=== PATIENT | male | born 1995 | race Two or more races ===

== ENCOUNTER 2019-09-03 09:00 | Emergency (ER) | payer MEDICAID ==
[~2019-09-03] VITALS: Ht 182.9 cm; Wt 94.8 kg
--- NOTE | 2019-09-03 09:10 | NUR ---
BIB ra c/o witnessed full tonic clonic seizure. Patient a/ox2 at this time, still post-ictal, slow to respond to questions. Breathing even and unlabored, no sob noted, changed into gown, attached to the ekg monitor. Seizure precaution observed.
[2019-09-03 09:24] LABS: BASOPHILS % (AUTO) 0.4 % (0.0-2.0); HEMATOCRIT 43 % (39-51); HEMOGLOBIN 14.7 g/dL (13.5-17.5); LYMPHOCYTES # (AUTO) 2.1 /CMM (0.8-4.8); LYMPHOCYTES % (AUTO) 22.4 % (20.0-44.0); MEAN CORPUSCULAR HGB CONC 34 g/dl (31.0-36.0); MEAN CORPUSCULAR VOLUME 94 fL (80-96); MONOCYTES # (AUTO) 0.8 /CMM (0.1-1.30); MONOCYTES % (AUTO) 8.9 % (2.0-12.0); NEUTROPHILS # (AUTO) 6.2 /CMM (1.8-8.9); NEUTROPHILS % (AUTO) 67.3 % (43.0-81.0); PLATELET COUNT (AUTO) 216 /CMM (150-450); RED BLOOD CELL COUNT(AUTO) 4.58 MIL/uL (4.5-6.0); WHITE BLOOD COUNT (AUTO) 9.3 K/uL (4.3-11.0)
[2019-09-03] MEDS ORDERED: LEVETIRACETAM (500MG) 500 MG in IV NS 0.9% 100 ML IV SCH (09:30)
[2019-09-03 09:34] LABS: CALCIUM, SERUM 8.5 mg/dL (8.5-10.1); CARBON DIOXIDE 27 mmol/L (21-32); CHLORIDE 104 mmol/L (98-107); CREATININE 0.7 mg/dL (0.6-1.3); GLUCOSE 191 mg/dL (74-106); POTASSIUM 3.7 mmol/L (3.5-5.1); SODIUM SERUM 140 mmol/L (136-145); UREA NITROGEN, BLOOD 13 mg/dL (7-18)
[2019-09-03 09:39] LABS: ALANINE AMINOTRANSFERASE 31 U/L (12-78); ALBUMIN 3.7 g/dL (3.4-5.0); ALCOHOL, BLOOD < 3 mg/dL (0-0); ALKALINE PHOSPHATASE 98 U/L (46-116); ASPARTATE AMINOTRANSFERASE 18 U/L (15-37); BILIRUBIN,TOTAL 0.2 mg/dL (0.2-1.0); TOTAL PROTEIN, SERUM 7.4 g/dL (6.4-8.2)
--- NOTE | 2019-09-03 10:53 | NUR ---
patient sleeping at this time, arousable to stimuli.
--- NOTE | 2019-09-03 11:42 | NUR ---
PATIENT A/OX4, BREATHING EVEN AND UNLABORED, NO SOB NOTED, NEEDS ATTENDED.
--- NOTE | 2019-09-03 11:42 | NUR ---
[facility] ETA 1230 TRIP#[id number]
--- NOTE | 2019-09-03 12:02 | NUR ---
REPORT GIVEN TO DHRUV AT [facility].
--- NOTE | 2019-09-03 12:44 | NUR ---
PATIENT AMBULATORY WITH STEADY GAIT. NO DISTRESS NOTED.
--- NOTE | 2019-09-03 12:55 | NUR ---
Vital signs stable. IV removed. Catheter intact and site benign. Pressure and 4x4 applied to site. No bleeding noted. [facility]. Written and verbal after care instructions given. Patient verbalizes understanding of instruction. Report given to [employer].
[2019-09-03 12:57] VITALS: BP 122/62
== END 2019-09-03 12:58 ==
LOC: ER 09:02
DX: G40.909 Epilepsy, unspecified, not intractable, without status epilepticus (principal); F12.90 Cannabis use, unspecified, uncomplicated
CPT/HCPCS: 36415; 80053; 80305; 80307; 85025; 96365; 99283; J1953; J7030; G0480

== ENCOUNTER 2019-09-12 12:33 | Emergency (ER) | payer MEDICAID ==
[~2019-09-12] VITALS: Ht 177.8 cm; Wt 74.8 kg
--- NOTE | 2019-09-12 12:44 | NUR ---
BIB RA, PT WAS FOUND FACE DOWN ON FLOOR S/P POSSIBLE SEIZURE. FOUND BY BOARD AND CARE STAFF. DENIES TRAUMA. DENIES PAIN. NO ACUTE DISTRESS NOTED. DENIES SOB, DIZZINESS, WEAKNESS, N/V. AOX4, AMBULATORY, VSS, RR EVEN AND UNLABORED ON RA. SEIZURE PRECAUTIONS IMPLEMENTED. READY FOR EVAL.
[2019-09-12] MEDS ORDERED: IV NS 0.9% 1,000 ML BAG IV ONE (13:00)
[2019-09-12] MEDS ORDERED: LEVETIRACETAM (500MG) 500 MG in IV NS 0.9% 100 ML IV SCH (13:00)
[2019-09-12 13:06] LABS: BASOPHILS # (AUTO) 0.1 /CMM (0.0-0.2); BASOPHILS % (AUTO) 0.6 % (0.0-2.0); EOSINOPHILS % (AUTO) 0.6 % (0.0-6.0); HEMATOCRIT 42 % (39-51); HEMOGLOBIN 14.1 g/dL (13.5-17.5); LYMPHOCYTES # (AUTO) 2.6 /CMM (0.8-4.8); MEAN CORPUSCULAR HGB CONC 34 g/dl (31.0-36.0); MEAN CORPUSCULAR VOLUME 93 fL (80-96); MONOCYTES # (AUTO) 0.6 /CMM (0.1-1.30); NEUTROPHILS # (AUTO) 5.3 /CMM (1.8-8.9); NEUTROPHILS % (AUTO) 61.8 % (43.0-81.0); PLATELET COUNT (AUTO) 273 /CMM (150-450); RED BLOOD CELL COUNT(AUTO) 4.48 MIL/uL (4.5-6.0); WHITE BLOOD COUNT (AUTO) 8.6 K/uL (4.3-11.0)
--- NOTE | 2019-09-12 13:10 | NUR ---
CALLED PHARMACY FOR RICKI
[2019-09-12 13:13] LABS: CALCIUM, SERUM 8.5 mg/dL (8.5-10.1); CREATININE 0.7 mg/dL (0.6-1.3); POTASSIUM 4.1 mmol/L (3.5-5.1)
[2019-09-12 13:19] LABS: ALBUMIN 3.7 g/dL (3.4-5.0); BILIRUBIN,TOTAL 0.2 mg/dL (0.2-1.0); TOTAL PROTEIN, SERUM 7.4 g/dL (6.4-8.2)
--- NOTE | 2019-09-12 14:09 | NUR ---
CALLED ANGEL KLINE AT [place] [phone]. DR BANEGAS IS THE DIRECTOR AND WILL BE AVAILABLE IN 20 MINS TO SPEAK WITH US.
--- NOTE | 2019-09-12 14:47 | NUR ---
CALLED ANGEL KLINE AT [facility] [phone]. DR BANEGAS IS IN A MEETING AND WILL CALL US BACK.
[2019-09-12 15:29] VITALS: BP 127/78
--- NOTE | 2019-09-12 15:29 | NUR ---
Patient discharged to home in stable condition. Written and verbal after care instructions given. Patient verbalizes understanding of instruction.
== END 2019-09-12 15:30 | disposition home or self-care (01) ==
LOC: ER 12:35
DX: G40.909 Epilepsy, unspecified, not intractable, without status epilepticus (principal); F12.10 Cannabis abuse, uncomplicated; F17.200 Nicotine dependence, unspecified, uncomplicated
CPT/HCPCS: 36415; 80048; 80076; 80177; 82962; 85025; 96365; 99284; 99406; J1953; J7030 ×2

== ENCOUNTER 2019-11-16 08:44 | Emergency (ER) | payer SELFPAY ==
[~2019-11-16] VITALS: Ht 177.8 cm; Wt 94.3 kg
[2019-11-16] MEDS ORDERED: LORAZEPAM INJ 2 MG/ML VIAL ONE (08:54)
[2019-11-16] MEDS ORDERED: IV NS 0.9% 1,000 ML BAG IV ONE ×2 (09:00→11:00)
[2019-11-16] MEDS ORDERED: LORAZEPAM INJ 2 MG/ML VIAL IV ONE (09:00)
[2019-11-16] MEDS ORDERED: LEVETIRACETAM (500MG) 500 MG in IV NS 0.9% 100 ML IV SCH (09:00)
--- NOTE | 2019-11-16 09:00 | NUR ---
[id number] from [facility], had seizure episode while eating breakfast for 5 mins, no trauma, BS117. Patient a/ox2, sleepy but arousable. No distress noted. Attached to the satellite project site monitor. Needs attended.
[2019-11-16 09:31] LABS: BASOPHILS % (AUTO) 0.4 % (0.0-2.0); HEMATOCRIT 42 % (39-51); LYMPHOCYTES # (AUTO) 1.6 /CMM (0.8-4.8); LYMPHOCYTES % (AUTO) 14.7 % (20.0-44.0); MEAN CORPUSCULAR HGB CONC 34 g/dl (31.0-36.0); MEAN CORPUSCULAR VOLUME 94 fL (80-96); MONOCYTES # (AUTO) 0.5 /CMM (0.1-1.30); MONOCYTES % (AUTO) 4.2 % (2.0-12.0); NEUTROPHILS % (AUTO) 80.7 % (43.0-81.0); PLATELET COUNT (AUTO) 224 /CMM (150-450); RED BLOOD CELL COUNT(AUTO) 4.43 MIL/uL (4.5-6.0); WHITE BLOOD COUNT (AUTO) 11.2 K/uL (4.3-11.0)
[2019-11-16 09:38] LABS: CALCIUM, SERUM 8.5 mg/dL (8.5-10.1); CREATININE 0.8 mg/dL (0.6-1.3); POTASSIUM 3.3 mmol/L (3.5-5.1)
--- NOTE | 2019-11-16 10:12 | NUR ---
CALLED TRANSPORT ETA IS 1200 PER OUR REQUEST.
--- NOTE | 2019-11-16 10:23 | NUR ---
CALLED AM [facility] NEW ETA IS [id number]
--- NOTE | 2019-11-16 11:51 | NUR ---
patient alert and oriented x4, ambulates with slow but steady gait. No distress noted. Breathing even and unlabored, vitals stable. Report given to [employer]. Patient discharged to [facility] in stable condition. Written and verbal after care instructions given. Patient verbalizes understanding of instruction.
[2019-11-16 11:53] VITALS: BP 124/67
== END 2019-11-16 11:53 ==
LOC: ER 08:46
DX: G40.909 Epilepsy, unspecified, not intractable, without status epilepticus (principal); R45.1 Restlessness and agitation; R00.0 Tachycardia, unspecified
CPT/HCPCS: 36415; 80048; 85025; 96365; 96375; 99284; J1953; J2060; J7030 ×2